=== PATIENT | female | born 1955 | race African-American/Black ===

== ENCOUNTER → 2024-06-22 | Outpatient (CLI) | payer MEDICARE, BC | END | disposition home or self-care (01) | LOC: RAD 10:36 | PROVIDERS: ATTEND Internal Medicine Hematology & Oncology | DX: M85.89 Other specified disorders of bone density and structure, multiple sites (principal); M81.0 Age-related osteoporosis without current pathological fracture; D24.2 Benign neoplasm of left breast | CPT/HCPCS: 77080 ==